=== PATIENT | female | born 1940 | race Caucasian/White ===

== ENCOUNTER → 2017-01-15 | Outpatient (CLI) | payer OTHER ==
[~2017-01-15] MED LIST: ALEN70TA5 PO; AMLO10TA2 PO; ATOR40TA78 PO; BUTA-177 PO; CALC-451 PO; CELE200C PO; CHOL100011 PO; CITA20TA5 PO; CLON-365 PO; DIAZ5TAB4 PO; METO50TA82 PO; MULT1TAB60 PO; OMEP-110 PO; VIT1TABL34 PO
== END | disposition home or self-care (01) ==
LOC: CARD 12:32
PROVIDERS: ATTEND Internal Medicine Cardiovascular Disease
DX: I10 Essential (primary) hypertension (principal); R06.02 Shortness of breath
CPT/HCPCS: 94060; 94726; 94729

== ENCOUNTER 2017-02-07 09:55 | Day surgery (SDC) | payer OTHER ==
[2017-02-05 14:08] VITALS: BP 128/60
[2017-02-05 14:53] LABS: ASPARTATE AMINO TRANSFERASE 23 U/L (15-37); BLOOD UREA NITROGEN 40 mg/dL (7-18)
[~2017-02-07] VITALS: Ht 146.8 cm; Wt 62.7 kg
[~2017-02-07 09:55] MED LIST changes: +HYDR25TA6 PO; +LOSA50TA6 PO; +METF500T27 PO
[2017-02-07] MEDS ORDERED: SODIUM CHLORIDE 0.9% 1,000 ML IV SCH (10:10)
[2017-02-07] MEDS ORDERED: FENTANYL PF 100 MCG/2ML ONE (13:39)
[2017-02-07] MEDS ORDERED: MIDAZOLAM 1 MG/ML, 5ML ONE (13:39)
[2017-02-07] MEDS ORDERED: HEPARIN 1,000 UNITS/ML, 10ML ONE (13:40)
[2017-02-07] MEDS ORDERED: LIDOCAINE 2%, 20ML ONE (13:40)
[2017-02-07] MEDS ORDERED: VERAPAMIL 2.5 MG/ML, 2ML ONE (13:41)
[2017-02-07] MEDS ORDERED: DIAZEPAM 5 MG TABLET PO PRN (16:30)
[2017-02-07] MEDS ORDERED: BUTALB/APAP/CAFFEINE 50MG/325MG/40MG PO PRN (16:30)
[2017-02-07] MEDS ORDERED: METOPROLOL TARTRATE 50 MG TABLET PO SCH (18:00)
[2017-02-07] MEDS ORDERED: LOSA100T2 PO (18:20)
[2017-02-07] MEDS ORDERED: ATORVASTATIN 40 MG TABLET PO SCH (21:00)
[2017-02-08] MEDS ORDERED: OMEPRAZOLE 20 MG CAPSULE.DR PO SCH (07:30)
[2017-02-08] MEDS ORDERED: metFORMIN XR 500 MG TAB.ER.24H PO SCH (08:00)
[2017-02-08] MEDS ORDERED: HYDROCHLOROTHIAZIDE 25 MG TABLET PO SCH (09:00)
[2017-02-08] MEDS ORDERED: CITALOPRAM 10 MG TABLET PO SCH (09:00)
[2017-02-08] MEDS ORDERED: MULTIVITS,STRESS FORMULA 1 TABLET PO SCH (09:00)
[2017-02-08] MEDS ORDERED: CALCIUM/VITAMIN D3 250-125 TABLET PO SCH (09:00)
[2017-02-08] MEDS ORDERED: LOSARTAN 50MG TABLET PO SCH (09:00)
[2017-02-08] MEDS ORDERED: MULTIVITAMIN 1 TABLET PO SCH (09:00)
[2017-02-09] MEDS ORDERED: CHOLECALCIFEROL 1,000 UNIT TABLET PO SCH (09:00)
[2017-02-17] MEDS ORDERED: ALENDRONATE 70 MG TABLET PO SCH (06:30)
== END 2017-02-07 19:40 | disposition home or self-care (01) ==
LOC: CACL 09:55 → 5SO 15:58 → CACL 19:40
PROVIDERS: ATTEND Internal Medicine Cardiovascular Disease
DX: I25.10 Atherosclerotic heart disease of native coronary artery without angina pectoris (principal); I10 Essential (primary) hypertension; Z88.0 Allergy status to penicillin
CPT/HCPCS: 36415; 71020; 80053; 85025; 85610; 85730; 93005; 93456; 99156; 99157; C1769; C1894; J1644; J2250; J3010; J3490; Q9967